=== PATIENT | female | born 1980 | race Caucasian/White ===

== ENCOUNTER 2020-04-10 15:32 | Outpatient (CLI) | payer OTHER ==
[2020-04-10] MEDS ORDERED: MULT-658 PO (16:03)
== END 2020-04-10 23:59 | disposition home or self-care (01) ==
LOC: STAR 15:32
PROVIDERS: ATTEND Specialist
DX: Z02.9 Encounter for administrative examinations, unspecified (principal)

== ENCOUNTER 2020-04-16 09:33 | Day surgery (SDC) | payer OTHER ==
[~2020-04-16] VITALS: Ht 175.3 cm; Wt 59.4 kg
[~2020-04-16 09:33] MED LIST: MULT-658 PO
[2020-04-16] MEDS ORDERED: LACTATED RINGERS 1,000 ML IV SCH (09:53)
[2020-04-16] MEDS ORDERED: LIDOCAINE-MPF 1%, 2ML ONE (09:55)
[2020-04-16] MEDS ORDERED: CHLORHEXIDINE 15 ML UDC ONE (09:59)
[2020-04-16] MEDS ORDERED: LIDOCAINE-MPF 1%, 2ML INFIL ONE (10:00)
[2020-04-16] MEDS ORDERED: CHLORHEXIDINE 15 ML UDC MM ONE (10:00)
[2020-04-16 10:11] LABS: HCG UR SG 1.008 (1.003-1.030)
[2020-04-16] MEDS ORDERED: ACETAMINOPHEN 500 MG TABLET PO ONE (10:30)
[2020-04-16] MEDS ORDERED: SCOPOLAMINE 1MG PATCH TD SCH (10:30)
[2020-04-16] MEDS ORDERED: GABAPENTIN 300 MG CAPSULE ONE (10:30)
[2020-04-16] MEDS ORDERED: GABAPENTIN 300 MG CAPSULE PO ONE (10:30)
[2020-04-16] MEDS ORDERED: ACETAMINOPHEN 500 MG TABLET ONE (10:31)
[2020-04-16] MEDS ORDERED: SCOPOLAMINE 1MG PATCH TD ONE (10:31)
[2020-04-16] MEDS ORDERED: MIDAZOLAM 1 MG/ML, 2ML ONE (10:43)
[2020-04-16] MEDS ORDERED: FENTANYL PF 250 MCG/5ML ONE (10:43)
[2020-04-16] MEDS ORDERED: BUPIVACAINE/PF-EPI 0.25% 1:200K ONE (10:44)
[2020-04-16] MEDS ORDERED: SILVER NITRATE STICK TP ONE (10:44)
[2020-04-16] MEDS ORDERED: LIDOCAINE 1%-EPI 1:100K, 20ML ONE (10:44)
[2020-04-16] MEDS ORDERED: VASOPRESSIN 20 UNIT/ML, 1ML ONE (10:44)
[2020-04-16] MEDS ORDERED: METHYLENE BLUE 10 MG/ML 10ML ONE (11:18)
[2020-04-16] MEDS ORDERED: KETOROLAC 30 MG/1 ML ONE (11:50)
[2020-04-16] MEDS ORDERED: PROPOFOL 10 MG/ML, 50ML ONE (11:50)
[2020-04-16] MEDS ORDERED: LABETALOL 5MG/ML, 20ML IV PRN (12:30)
[2020-04-16] MEDS ORDERED: PROMETHAZINE 25 MG/ML, 1ML IV PRN (12:30)
[2020-04-16] MEDS ORDERED: MEPERIDINE/PF 25MG/0.5ML IVPush PRN (12:30)
[2020-04-16] MEDS ORDERED: ALBUTEROL SULFATE 2.5 MG/3 ML NPPB PRN (12:30)
[2020-04-16] MEDS ORDERED: DIAZEPAM 5 MG/ML, 2ML IVPush PRN (12:30)
[2020-04-16] MEDS ORDERED: ACETAMINOPHEN 325 MG TABLET PO PRN (12:30)
[2020-04-16] MEDS ORDERED: OXYcodone 5 MG/5 ML ORAL.SOL UDC PO PRN (12:30)
[2020-04-16] MEDS ORDERED: hydrALAzine 20 MG/ML, 1ML IV PRN (12:30)
[2020-04-16] MEDS ORDERED: HYDROmorphone 2 MG/ML, 1ML IVPush PRN (12:30)
[2020-04-16] MEDS ORDERED: FENTANYL PF 100 MCG/2ML IV PRN (12:30)
[2020-04-16] MEDS ORDERED: GLYCOPYRROLATE 0.2MG/1ML, 5ML ONE (12:35)
[2020-04-16] MEDS ORDERED: DEXAMETHASONE 4 MG/ML, 1ML ONE (12:35)
[2020-04-16] MEDS ORDERED: NEOSTIGMINE 1 MG/ML, 10ML ONE (12:35)
[2020-04-16] MEDS ORDERED: CEFAZOLIN 1,000 MG ONE (12:35)
[2020-04-16] MEDS ORDERED: PROPOFOL 10 MG/ML, 20ML ONE (12:35)
[2020-04-16] MEDS ORDERED: ONDANSETRON 2MG/ML, 2ML ONE (12:35)
[2020-04-16] MEDS ORDERED: SUGAMMADEX 200 MG/2 ML IVPush ONE (12:35)
[2020-04-16] MEDS ORDERED: SUCCINYLCHOLINE 20 MG/ML, 10ML ONE (12:35)
[2020-04-16] MEDS ORDERED: ROCURONIUM 10MG/ML,5ML ONE (12:35)
== END 2020-04-16 17:10 | disposition home or self-care (01) ==
LOC: OUT 09:33
PROVIDERS: ATTEND Specialist
DX: D25.9 Leiomyoma of uterus, unspecified (principal); Z11.59 Encounter for screening for other viral diseases; N88.2 Stricture and stenosis of cervix uteri; Z86.718 Personal history of other venous thrombosis and embolism; Z79.01 Long term (current) use of anticoagulants; Z72.89 Other problems related to lifestyle; Z82.49 Family history of ischemic heart disease and other diseases of the circulatory system
CPT/HCPCS: 49320; 58558; 81025; 88305; J0690; J1100; J1885; J2250; J2405; J2704; J3010; J7120; Q9968; U0001; J2710; J3490; J0330